=== PATIENT | female | born 1950 ===

== ENCOUNTER 2018-05-09 11:53 | Emergency (ER) | payer OTHER ==
[~2018-05-09] VITALS: Ht 157.5 cm; Wt 90.7 kg
[2018-05-09] MEDS ORDERED: NORVASC5 MG (12:03)
[2018-05-09] MEDS ORDERED: HYDRODIURIL12.5 MG (12:04)
[2018-05-09] MEDS ORDERED: PROTONIX20 MG (12:04)
[2018-05-09] MEDS ORDERED: PROTONIX40 MG (12:05)
[2018-05-09] MEDS ORDERED: AUGMENTIN 875-125 (12:06)
== END 2018-05-09 14:53 | disposition home or self-care (01) ==
LOC: ER 11:53
DX: N39.0 Urinary tract infection, site not specified (principal)